=== PATIENT | male | born 1975 | race Two or more races ===

== ENCOUNTER 2019-12-29 08:04 | Inpatient (IN) | payer MEDICARE, OTHER ==
[~2019-12-29] VITALS: Ht 170.2 cm; Wt 152.3 kg
[2019-12-29 08:55] LABS: Basophils # (auto) 0.1 10 ^3/uL (0-0.2); Basophils % (auto) 0.9 % (0.0-2.0); Eosinophils # (auto) 0.2 10 ^3/uL (0-0.8); Hematocrit 50.6 % (41.0-53.0); Hemoglobin 17.1 g/dL (13.5-17.5); Lymphocytes # (auto) 2.1 10 ^3/uL (0.4-5.4); Lymphocytes % (auto) 19.9 % (10.0-50.0); Mean Corpuscular Hemoglobin 28.9 pg (28.0-32.0); Mean Corpuscular Hgb Conc. 33.8 g/dL (32.0-36.0); Mean Corpuscular Volume 85.4 fL (80.0-100.0); Monocytes # (auto) 0.9 10 ^3/uL (0-1.3); Monocytes % (auto) 8.7 % (0.0-12.0); Neutrophils # (auto) 7.1 10 ^3/uL (1.6-8.6); Neutrophils % (auto) 68.5 % (37.0-80.0); Nucleated Red Blood Cells % 0.1 %; Platelet Count (auto) 157 10^3/uL (140-450); Red Blood Cells 5.92 10^6/uL (4.5-5.90); Red Cell Distribution Width 14.9 % (11.8-14.3); White Blood Cell 10.4 10^3/uL (4.4-10.8)
[2019-12-29 09:11] LABS: Urine Bacteria NONE SEEN /hpf (None Seen); Urine Blood TRACE /uL (Negative); Urine Specific Gravity 1.033 (1.001-1.035); Urine WBC 5 /hpf (0 - 3)
[2019-12-29 09:15] LABS: Albumin 3.4 g/dL (3.4-5.0); Calcium 9.1 mg/dL (8.5-10.1); Magnesium 2.8 mg/dL (1.6-2.6); Potassium 3.9 mmol/L (3.5-5.1)
[2019-12-29 09:17] LABS: INR 1.3 (0.9-1.15); Partial Thromboplastin Time 29.1 sec (23.64-32.05)
[2019-12-29 09:23] LABS: BUN/Creatinine Ratio 16.4; Bilirubin, Total 0.7 mg/dL (0.2-1.0); Total Protein 8.4 g/dL (6.4-8.2)
[2019-12-29] MEDS ORDERED: InsuLIN REG 1unit/0.01ml Soln (100units/ml) IV ONE ×2 (10:15→14:30)
[2019-12-29] MEDS ORDERED: SODIUM CHLORIDE 0.9% 1,000 ML IV ONE (10:15)
[2019-12-29] MEDS ORDERED: cefTRIAXone 1GM/50ML D5W 50 ML IV ONE (10:30)
[2019-12-29] MEDS ORDERED: TEMAZEPAM 15 MG CAP PO PRN (11:00)
[2019-12-29] MEDS ORDERED: PROMETHAZINE HCL 25 MG/ML 1ML IV PRN (11:00)
[2019-12-29] MEDS ORDERED: DEXTROSE (50%) 50ML SYRG IV PRN ×2 (11:00→14:30)
[2019-12-29] MEDS ORDERED: INSULIN LANTUS (GLARGINE) 1 /0.01ml (100units/ml) SC ONE (11:00)
[2019-12-29] MEDS ORDERED: traMADol HCL 50 MG TAB PO PRN (11:00)
[2019-12-29] MEDS ORDERED: ACETAMINOPHEN 500 MG TAB PO PRN (11:00)
[2019-12-29 11:34] LABS: Amylase 30 U/L (25-115); Lipase 235 U/L (73-393)
[2019-12-29 11:40] LABS: CRP High Sensitivity 2.06 mg/dL (< 0.3)
[2019-12-29] MEDS ORDERED: ACCU-CHEK COMFORT CURVE STRIP VI SCH (12:00)
[2019-12-29] MEDS ORDERED: InsuLIN REG 1unit/0.01ml Soln (100units/ml) SC SCH (12:00)
[2019-12-29] MEDS: SODIUM CHLORIDE 0.9% 1,000 ML IV SCH ×2 (13:41→20:00)
[2019-12-29] MEDS ORDERED: InsuLIN REG 1unit/0.01ml Soln (100units/ml) SC ONE (14:30)
[2019-12-29] MEDS ORDERED: InsuLIN REG 1unit/0.01ml Soln (100units/ml) ONE (14:40)
[2019-12-29] MEDS: ACCU-CHEK COMFORT CURVE STRIP VI SCH ×2 (16:49→20:08)
[2019-12-29] MEDS: InsuLIN REG 1unit/0.01ml Soln (100units/ml) SC SCH ×2 (17:09→20:08)
[2019-12-29 20:00] VITALS: BP 135/85
[2019-12-29 22:00] VITALS: BP 116/72
[2019-12-29] MEDS: INSULIN LANTUS (GLARGINE) 1 /0.01ml (100units/ml) SC SCH (22:09)
[2019-12-29] MEDS: FAMOTIDINE 20 MG TAB PO SCH (23:11)
[2019-12-30] MEDS: InsuLIN REG 1unit/0.01ml Soln (100units/ml) SC SCH ×6 (00:33→21:54)
[2019-12-30] MEDS: ACCU-CHEK COMFORT CURVE STRIP VI SCH ×6 (00:33→21:55)
[2019-12-30] MEDS: SODIUM CHLORIDE 0.9% 1,000 ML IV SCH ×4 (00:41→21:56)
[2019-12-30 04:30] VITALS: BP 125/70
[2019-12-30] MEDS: INSULIN LANTUS (GLARGINE) 1 /0.01ml (100units/ml) SC SCH ×2 (06:42→21:55)
[2019-12-30 06:45] LABS: Albumin 2.7 g/dL (3.4-5.0); Calcium 7.7 mg/dL (8.5-10.1); Potassium 3.6 mmol/L (3.5-5.1)
[2019-12-30 06:50] LABS: BUN/Creatinine Ratio 15.6; Bilirubin, Total 0.5 mg/dL (0.2-1.0)
[2019-12-30] MEDS: cefTRIAXone 1GM/50ML D5W 50 ML IV SCH (07:54)
[2019-12-30 09:00] VITALS: BP 114/63
[2019-12-30] MEDS: ASCORBIC ACID 1,000 MG TAB PO SCH (10:00)
[2019-12-30] MEDS: FAMOTIDINE 20 MG TAB PO SCH ×2 (10:18→21:55)
[2019-12-30] MEDS: ZINC SULFATE 220mg CAP or TAB PO SCH (10:18)
[2019-12-30] MEDS: CHOLECALCIFEROL (VITD3) 1,000IU=25mCg TAB PO SCH (10:18)
[2019-12-30] MEDS: ENOXAPARIN SOD 40 MG/0.4 ML SYRINGE SC SCH (10:19)
[2019-12-30 14:00] VITALS: BP 120/68
[2019-12-30 15:55] VITALS: BP 120/68
[2019-12-30 17:00] VITALS: BP 115/70
[2019-12-30 22:00] VITALS: BP 136/71
[2019-12-31] MEDS: ACCU-CHEK COMFORT CURVE STRIP VI SCH ×6 (00:42→22:41)
[2019-12-31] MEDS: InsuLIN REG 1unit/0.01ml Soln (100units/ml) SC SCH ×6 (00:42→22:40)
[2019-12-31 05:00] VITALS: BP 132/65
[2019-12-31] MEDS: SODIUM CHLORIDE 0.9% 1,000 ML IV SCH ×3 (06:32→22:57)
[2019-12-31] MEDS: INSULIN LANTUS (GLARGINE) 1 /0.01ml (100units/ml) SC SCH ×2 (06:32→22:41)
[2019-12-31 06:35] LABS: Basophils # (auto) 0 10 ^3/uL (0-0.2); Basophils % (auto) 0.5 % (0.0-2.0); Eosinophils # (auto) 0.2 10 ^3/uL (0-0.8); Eosinophils % (auto) 3.4 % (0.0-7.0); Hematocrit 43.9 % (41.0-53.0); Hemoglobin 14.9 g/dL (13.5-17.5); Lymphocytes # (auto) 1.6 10 ^3/uL (0.4-5.4); Lymphocytes % (auto) 22.4 % (10.0-50.0); Mean Corpuscular Hemoglobin 28.7 pg (28.0-32.0); Mean Corpuscular Hgb Conc. 33.9 g/dL (32.0-36.0); Mean Corpuscular Volume 84.5 fL (80.0-100.0); Monocytes # (auto) 0.5 10 ^3/uL (0-1.3); Neutrophils # (auto) 4.8 10 ^3/uL (1.6-8.6); Neutrophils % (auto) 66.7 % (37.0-80.0); Nucleated Red Blood Cells % 0.1 %; Platelet Count (auto) 122 10^3/uL (140-450); Red Cell Distribution Width 14.8 % (11.8-14.3); White Blood Cell 7.1 10^3/uL (4.4-10.8)
[2019-12-31 06:48] LABS: Potassium 3.2 mmol/L (3.5-5.1)
[2019-12-31 07:00] LABS: Albumin 2.7 g/dL (3.4-5.0); BUN/Creatinine Ratio 15.6; Bilirubin, Total 0.5 mg/dL (0.2-1.0); Calcium 7.7 mg/dL (8.5-10.1); Total Protein 6.8 g/dL (6.4-8.2)
[2019-12-31 07:08] LABS: % Iron Saturation 48.9 % (20-55)
[2019-12-31 08:00] VITALS: BP 105/50
[2019-12-31 09:00] VITALS: BP 105/54
[2019-12-31] MEDS: ASCORBIC ACID 1,000 MG TAB PO SCH (10:00)
[2019-12-31] MEDS: CHOLECALCIFEROL (VITD3) 1,000IU=25mCg TAB PO SCH (11:00)
[2019-12-31] MEDS: FAMOTIDINE 20 MG TAB PO SCH ×2 (11:00→22:41)
[2019-12-31] MEDS: ENOXAPARIN SOD 40 MG/0.4 ML SYRINGE SC SCH (11:00)
[2019-12-31] MEDS: ZINC SULFATE 220mg CAP or TAB PO SCH (11:00)
[2019-12-31 13:00] VITALS: BP 98/50
[2019-12-31] MEDS: cefTRIAXone 1GM/50ML D5W 50 ML IV SCH (13:30)
[2019-12-31 17:00] VITALS: BP 118/78
[2019-12-31 22:00] VITALS: BP 150/81
[2020-01-01] MEDS: InsuLIN REG 1unit/0.01ml Soln (100units/ml) SC SCH ×6 (01:17→20:40)
[2020-01-01] MEDS: ACCU-CHEK COMFORT CURVE STRIP VI SCH ×6 (01:32→20:37)
[2020-01-01 05:00] VITALS: BP 134/78
[2020-01-01] MEDS: SODIUM CHLORIDE 0.9% 1,000 ML IV SCH ×4 (05:37→21:52)
[2020-01-01] MEDS: INSULIN LANTUS (GLARGINE) 1 /0.01ml (100units/ml) SC SCH ×2 (06:03→21:51)
[2020-01-01 08:00] VITALS: BP 140/61
[2020-01-01 08:40] VITALS: BP 140/61
[2020-01-01] MEDS: cefTRIAXone 1GM/50ML D5W 50 ML IV SCH (08:45)
[2020-01-01] MEDS: ASCORBIC ACID 1,000 MG TAB PO SCH (10:00)
[2020-01-01] MEDS ORDERED: GOLYTELY 4L KIT PO ONE ×2 (10:00→12:00)
[2020-01-01] MEDS: FAMOTIDINE 20 MG TAB PO SCH ×2 (10:30→21:49)
[2020-01-01] MEDS: ENOXAPARIN SOD 40 MG/0.4 ML SYRINGE SC SCH (10:30)
[2020-01-01] MEDS: CHOLECALCIFEROL (VITD3) 1,000IU=25mCg TAB PO SCH (10:30)
[2020-01-01] MEDS: ZINC SULFATE 220mg CAP or TAB PO SCH (10:30)
[2020-01-01 12:30] VITALS: BP_SYST 155; BP_DIAS 9; BP_DIAS 90
[2020-01-01 17:00] VITALS: BP 155/83
[2020-01-01] MEDS ORDERED: hydrALAZINE HCL 20 MG/ML VL IV PRN ×2 (18:15→18:30)
[2020-01-01 22:00] VITALS: BP 119/47
[2020-01-02] MEDS: SODIUM CHLORIDE 0.9% 1,000 ML IV SCH ×4 (03:26→21:56)
[2020-01-02] MEDS: ACCU-CHEK COMFORT CURVE STRIP VI SCH ×7 (03:54→23:54)
[2020-01-02] MEDS: InsuLIN REG 1unit/0.01ml Soln (100units/ml) SC SCH ×7 (03:54→23:55)
[2020-01-02] MEDS ORDERED: GOLYTELY 4L KIT PO ONE (04:00)
[2020-01-02 05:00] VITALS: BP 153/75
[2020-01-02 05:58] LABS: Basophils # (auto) 0.1 10 ^3/uL (0-0.2); Basophils % (auto) 0.7 % (0.0-2.0); Eosinophils # (auto) 0.3 10 ^3/uL (0-0.8); Eosinophils % (auto) 3.8 % (0.0-7.0); Hematocrit 43.9 % (41.0-53.0); Hemoglobin 15.3 g/dL (13.5-17.5); Lymphocytes # (auto) 2.1 10 ^3/uL (0.4-5.4); Lymphocytes % (auto) 24.9 % (10.0-50.0); Mean Corpuscular Hemoglobin 29.4 pg (28.0-32.0); Mean Corpuscular Hgb Conc. 34.8 g/dL (32.0-36.0); Mean Corpuscular Volume 84.3 fL (80.0-100.0); Monocytes # (auto) 0.7 10 ^3/uL (0-1.3); Monocytes % (auto) 8.5 % (0.0-12.0); Neutrophils # (auto) 5.2 10 ^3/uL (1.6-8.6); Neutrophils % (auto) 62.1 % (37.0-80.0); Nucleated Red Blood Cells % 0.1 %; Platelet Count (auto) 150 10^3/uL (140-450); Red Blood Cells 5.21 10^6/uL (4.5-5.90); Red Cell Distribution Width 14.9 % (11.8-14.3); White Blood Cell 8.3 10^3/uL (4.4-10.8)
[2020-01-02 06:09] LABS: INR 1.12 (0.9-1.15)
[2020-01-02 06:22] LABS: Potassium 3.1 mmol/L (3.5-5.1)
[2020-01-02 06:29] LABS: Albumin 2.7 g/dL (3.4-5.0); BUN/Creatinine Ratio 7.4; Bilirubin, Total 0.4 mg/dL (0.2-1.0); Calcium 7.8 mg/dL (8.5-10.1); Total Protein 6.7 g/dL (6.4-8.2)
[2020-01-02] MEDS: INSULIN LANTUS (GLARGINE) 1 /0.01ml (100units/ml) SC SCH ×2 (07:00→21:56)
[2020-01-02 09:00] VITALS: BP 138/80
[2020-01-02] MEDS: cefTRIAXone 1GM/50ML D5W 50 ML IV SCH (09:13)
[2020-01-02] MEDS: FAMOTIDINE 20 MG TAB PO SCH (10:00)
[2020-01-02] MEDS: ENOXAPARIN SOD 40 MG/0.4 ML SYRINGE SC SCH (10:00)
[2020-01-02 11:04] LABS: Hepatitis B Surface Antibody Negative
[2020-01-02 11:05] LABS: Hepatitis B Surface Antibody Negative
[2020-01-02] MEDS ORDERED: POTASSIUM CHL 20MEQ/100ML 100 ML IV ONE ×3 (11:30→15:30)
[2020-01-02 11:37] LABS: Hepatitis A Total Antibody Negative
[2020-01-02 11:40] LABS: Hepatitis A Total Antibody Negative
[2020-01-02] MEDS ORDERED: fentaNYL CITRATE 100 MCG/2 ML VL ONE (12:33)
[2020-01-02] MEDS ORDERED: PROPOFOL 10 MG/ML 20 ML IV ONE (12:36)
[2020-01-02] MEDS ORDERED: hydrALAZINE HCL 20 MG/ML VL IV PRN (13:15)
[2020-01-02] MEDS ORDERED: ePHEDrine SULFATE 50 MG/ML AMP IV PRN (13:15)
[2020-01-02] MEDS ORDERED: ONDANSETRON HCL 4 MG/2 ML VIAL IV PRN (13:15)
[2020-01-02 13:16] LABS: Hepatitis B Core Total AB Negative; Hepatitis B Surface Antigen Negative (Negative); Hepatitis C Antibody Negative (Negative)
[2020-01-02 13:17] LABS: Hepatitis B Core Total AB Negative; Hepatitis B Surface Antigen Negative (Negative); Hepatitis C Antibody Negative (Negative)
[2020-01-02 14:00] VITALS: BP 140/80
[2020-01-02] MEDS: PANTOPRAZOLE 40 MG TAB PO SCH (14:02)
[2020-01-02 17:00] VITALS: BP 141/78
[2020-01-02 22:00] VITALS: BP 142/96
[2020-01-03] MEDS: InsuLIN REG 1unit/0.01ml Soln (100units/ml) SC SCH ×3 (03:59→12:00)
[2020-01-03] MEDS: ACCU-CHEK COMFORT CURVE STRIP VI SCH ×3 (03:59→12:00)
[2020-01-03] MEDS: SODIUM CHLORIDE 0.9% 1,000 ML IV SCH ×2 (05:00→11:30)
[2020-01-03 05:30] VITALS: BP 145/63
[2020-01-03 05:46] LABS: Urine Bacteria NONE SEEN /hpf (None Seen); Urine Blood Negative /uL (Negative); Urine Specific Gravity 1.005 (1.001-1.035); Urine WBC <1 /hpf (0 - 3)
[2020-01-03] MEDS: INSULIN LANTUS (GLARGINE) 1 /0.01ml (100units/ml) SC SCH (06:57)
[2020-01-03 07:06] LABS: Potassium 3.5 mmol/L (3.5-5.1)
[2020-01-03 07:13] LABS: Albumin 2.8 g/dL (3.4-5.0); BUN/Creatinine Ratio 7.6; Bilirubin, Total 0.5 mg/dL (0.2-1.0); Calcium 7.9 mg/dL (8.5-10.1); Total Protein 6.9 g/dL (6.4-8.2)
[2020-01-03 08:00] VITALS: BP 125/72
[2020-01-03] MEDS: cefTRIAXone 1GM/50ML D5W 50 ML IV SCH (08:24)
[2020-01-03] MEDS: PANTOPRAZOLE 40 MG TAB PO SCH (10:11)
[2020-01-03] MEDS: ENOXAPARIN SOD 40 MG/0.4 ML SYRINGE SC SCH (10:12)
[2020-01-03 10:47] VITALS: BP 125/72
[2020-01-03 12:00] VITALS: BP 147/82
== END 2020-01-03 13:15 | disposition home or self-care (01) | DRG 638 ==
LOC: ER 08:04 → TELE 08:05 → TELE-EAST 12:06 → TELE-CENTR 21:50
PROVIDERS: ADMIT Internal Medicine; ATTEND Family Medicine
PROC: 0DB68ZX Excision of Stomach, Via Natural or Artificial Opening Endoscopic, Diagnostic (ICD-10-PCS; principal; 2020-01-02 12:29)
PROC: 0DJD8ZZ Inspection of Lower Intestinal Tract, Via Natural or Artificial Opening Endoscopic (ICD-10-PCS; 2020-01-02 12:29)
DX: E11.00 Type 2 diabetes mellitus with hyperosmolarity without nonketotic hyperglycemic-hyperosmolar coma (NKHHC) (principal); N39.0 Urinary tract infection, site not specified; E87.1 Hypo-osmolality and hyponatremia; N17.9 Acute kidney failure, unspecified; Z68.43 Body mass index [BMI] 50.0-59.9, adult; E11.65 Type 2 diabetes mellitus with hyperglycemia; K29.80 Duodenitis without bleeding; G47.30 Sleep apnea, unspecified; K29.70 Gastritis, unspecified, without bleeding; F15.90 Other stimulant use, unspecified, uncomplicated; E66.01 Morbid (severe) obesity due to excess calories; Z83.3 Family history of diabetes mellitus; Z03.818 Encounter for observation for suspected exposure to other biological agents ruled out
CPT/HCPCS: 36415; 43239; 45378; 71045; 73630; 76700; 80053; 81001; 82150; 82306; 82728; 82962; 83036; 83540; 83550; 83615; 83690; 83735; 84100; 85025; 85379; 85610; 85730; 86038; 86141; 86704; 86706; 86708; 86803; 87070; 87086; 87205; 87340; 87804; 87880; 94660; 96361; 96365; 96375; 99291; G0378; J0696; J1815; J2704; J3480

== ENCOUNTER 2020-08-02 15:08 | Emergency (ER) | payer SELFPAY ==
[~2020-08-02] VITALS: Ht 167.6 cm; Wt 145.1 kg
[2020-08-02 15:16] VITALS: BP 155/84
[2020-08-02] MEDS ORDERED: cefTRIAXone SOD 1,000 MG VL IM ONE ×2 (16:45)
== END 2020-08-02 17:11 | disposition home or self-care (01) ==
LOC: ER 15:08
DX: L73.9 Follicular disorder, unspecified (principal); L02.821 Furuncle of head [any part, except face]; E11.9 Type 2 diabetes mellitus without complications
CPT/HCPCS: 96372; 99284; J0696

== ENCOUNTER 2021-03-30 18:48 | Emergency (ER) | payer MEDICARE, OTHER ==
[~2021-03-30] VITALS: Ht 167.6 cm; Wt 140.6 kg
[2021-03-30 20:41] VITALS: BP 129/74
== END 2021-03-30 23:04 | disposition home or self-care (01) ==
LOC: ER 18:49
DX: S23.3XXA Sprain of ligaments of thoracic spine, initial encounter (principal); E11.9 Type 2 diabetes mellitus without complications; I10 Essential (primary) hypertension; V43.52XA Car driver injured in collision with other type car in traffic accident, initial encounter; Y93.89 Activity, other specified; Y92.410 Unspecified street and highway as the place of occurrence of the external cause; Y99.8 Other external cause status
CPT/HCPCS: 72080

== ENCOUNTER 2023-03-31 13:17 | Emergency (ER) | payer MEDICAID ==
[~2023-03-31] VITALS: Ht 167.6 cm; Wt 129.5 kg
[2023-03-31 13:22] VITALS: BP 141/120; RESP 18; O2SAT 96
[2023-03-31] MEDS ORDERED: LABETALOL HCL 5 MG/ML 4ML SYRINGE IV ONE (13:30)
[2023-03-31 13:37] VITALS: PULSE 95
[2023-03-31 14:47] LABS: Alanine Aminotransferase 48 U/L (7-40); Albumin 4.5 g/dL (3.2-4.8); Alkaline Phosphatase 95 U/L (46-116); Anion Gap 10.3 (5-15); Aspartate Aminotransferase 13 U/L (13-40); BUN/Creatinine Ratio 12.2 (10.0-20.0); Blood Urea Nitrogen 11 mg/dL (9-23); Calcium 9.8 mg/dL (8.7-10.4); Carbon Dioxide 22.7 mmol/L (20-30); Chloride 102 mmol/L (98-107); Glucose 387 mg/dL (74-106); Magnesium 1.8 mg/dL (1.6-2.6); Sodium 135 mmol/L (136-145)
[2023-03-31 14:48] LABS: Bilirubin, Total 0.4 mg/dL (0.2-1.0); Total Protein 7.9 g/dL (5.7-8.2)
[2023-03-31 14:51] LABS: Basophils # (auto) 0.1 10 ^3/uL (0-0.2); Eosinophils # (auto) 0.3 10 ^3/uL (0-0.8); Mean Corpuscular Hemoglobin 28.2 pg (28.0-32.0); Mean Corpuscular Hgb Conc. 33.7 g/dL (32.0-36.0); Nucleated Red Blood Cells % 0.1 %
[2023-03-31 14:52] LABS: Basophils % (auto) 0.4 % (0.0-2.0); Eosinophils % (auto) 1.8 % (0.0-7.0); Hematocrit 50.5 % (41.0-53.0); Lymphocytes # (auto) 3.8 10 ^3/uL (0.4-5.4); Lymphocytes % (auto) 25.4 % (10.0-50.0); Mean Corpuscular Volume 83.5 fL (80.0-100.0); Monocytes # (auto) 0.8 10 ^3/uL (0-1.3); Monocytes % (auto) 5.5 % (0.0-12.0); Neutrophils % (auto) 66.9 % (37.0-80.0); Red Blood Cells 6.05 10^6/uL (4.5-5.90); Red Cell Distribution Width 13.9 % (11.8-14.3)
[2023-03-31] MEDS ORDERED: VALA1TAB34 PO (15:08)
[2023-03-31] MEDS ORDERED: PRED20TA2 PO (15:08)
[2023-03-31] MEDS ORDERED: predniSONE 20 MG TAB PO ONE (15:15)
[2023-03-31] MEDS ORDERED: ACYCLOVIR 400 MG TAB PO ONE (15:15)
== END 2023-03-31 16:46 | disposition home or self-care (01) ==
LOC: ER 13:17
DX: G51.0 Bell's palsy (principal); E11.9 Type 2 diabetes mellitus without complications; E78.5 Hyperlipidemia, unspecified; I10 Essential (primary) hypertension; Z98.890 Other specified postprocedural states
CPT/HCPCS: 36415; 70450; 71045; 80053; 83735; 84484; 85025; 93005; 96374

== ENCOUNTER 2023-04-08 11:51 | Emergency (ER) | payer MEDICAID ==
[~2023-04-08] VITALS: Ht 167.6 cm; Wt 128.7 kg
[~2023-04-08 11:51] MED LIST: PRED20TA2 PO; VALA1TAB34 PO
[2023-04-08 12:00] VITALS: BP 142/79; PULSE 84; RESP 18; O2SAT 94
== END 2023-04-08 17:21 | disposition left against medical advice (07) ==
LOC: ER 11:51
DX: R29.810 Facial weakness (principal); R21 Rash and other nonspecific skin eruption; Z53.21 Procedure and treatment not carried out due to patient leaving prior to being seen by health care provider

== ENCOUNTER 2023-10-09 17:05 | Inpatient (IN) | payer MEDICAID ==
[~2023-10-09] VITALS: Ht 167.6 cm; Wt 130.2 kg
[2023-10-09] MEDS: CLINDAMYCIN HCL 150 MG CAP PO ONE (18:39)
[2023-10-09] MEDS: TETANUS-DIPTH-ACEL PERTUSSIS 0.5ML SYR Tdap IM ONE (18:41)
[2023-10-09] MEDS: cefTRIAXone SOD 1,000 MG VL IM ONE (18:47)
[2023-10-09 19:46] LABS: Basophils # (auto) 0.1 10 ^3/uL (0-0.2); Basophils % (auto) 0.4 % (0.0-2.0); Eosinophils # (auto) 0.2 10 ^3/uL (0-0.8); Eosinophils % (auto) 1.1 % (0.0-7.0); Hematocrit 48.4 % (41.0-53.0); Hemoglobin 16.4 g/dL (13.5-17.5); Lymphocytes # (auto) 2.7 10 ^3/uL (0.4-5.4); Lymphocytes % (auto) 15.5 % (10.0-50.0); Mean Corpuscular Hemoglobin 28.1 pg (28.0-32.0); Mean Corpuscular Hgb Conc. 33.9 g/dL (32.0-36.0); Monocytes # (auto) 1.3 10 ^3/uL (0-1.3); Monocytes % (auto) 7.4 % (0.0-12.0); Neutrophils # (auto) 13.4 10 ^3/uL (1.6-8.6); Neutrophils % (auto) 75.6 % (37.0-80.0); Red Blood Cells 5.83 10^6/uL (4.5-5.90); Red Cell Distribution Width 13.8 % (11.8-14.3); White Blood Cell 17.7 10^3/uL (4.4-10.8)
[2023-10-09 19:55] LABS: Chloride 101 mmol/L (98-107); Potassium 3.6 mmol/L (3.5-5.1); Sodium 131 mmol/L (136-145)
[2023-10-09 19:56] LABS: Anion Gap 6 (5-15); Calcium 9.8 mg/dL (8.5-10.1); Carbon Dioxide 24 mmol/L (20-30)
[2023-10-09 20:01] LABS: BUN/Creatinine Ratio 6.8 (10.0-20.0); Blood Urea Nitrogen 5 mg/dL (9-23); Glucose 342 mg/dL (74-106)
[2023-10-09] MEDS: cloNIDine HCL 0.1 MG TAB PO ONE (21:24)
[2023-10-09] MEDS: INSULIN LISPRO (HUMAN) 100 UNITS/ML ML SC ONE (21:26)
[2023-10-09] MEDS: SODIUM CHLORIDE 0.9% 1,000 ML IV ONE ×2 (22:01→23:57)
[2023-10-09] MEDS ORDERED: NITROGLYCERIN 0.4 MG SL TAB SL PRN (22:30)
[2023-10-09] MEDS ORDERED: MORPHINE SULFATE INJ 2 MG/ml SYRG IV PRN ×2 (22:30)
[2023-10-09] MEDS ORDERED: DEXTROSE (50%) 50ML SYRG IV PRN (22:30)
[2023-10-09] MEDS ORDERED: DOCUSATE SOD 100 MG CAP PO PRN (22:30)
[2023-10-09] MEDS ORDERED: ONDANSETRON HCL 4 MG/2 ML VIAL IV PRN (22:30)
[2023-10-09] MEDS ORDERED: ACETAMINOPHEN 325 MG TAB PO PRN (22:30)
[2023-10-09] MEDS ORDERED: TEMAZEPAM 15 MG CAP PO PRN (22:30)
[2023-10-10] MEDS: PIPERACILLIN-TAZOB 3.375GM 100 ML IV SCH (00:52)
[2023-10-10] MEDS: ACCU-CHEK COMFORT CURVE STRIP VI SCH (00:58)
[2023-10-10] MEDS: InsuLIN REG 1unit/0.01ml Soln (100units/ml) SC SCH (00:59)
[2023-10-10 06:12] LABS: Basophils # (auto) 0.1 10 ^3/uL (0-0.2); Basophils % (auto) 0.5 % (0.0-2.0); Eosinophils # (auto) 0.2 10 ^3/uL (0-0.8); Eosinophils % (auto) 1.4 % (0.0-7.0); Hematocrit 46.6 % (41.0-53.0); Hemoglobin 15.8 g/dL (13.5-17.5); Lymphocytes # (auto) 2.9 10 ^3/uL (0.4-5.4); Lymphocytes % (auto) 17.8 % (10.0-50.0); Mean Corpuscular Volume 82.4 fL (80.0-100.0); Monocytes # (auto) 1.3 10 ^3/uL (0-1.3); Monocytes % (auto) 7.9 % (0.0-12.0); Neutrophils # (auto) 11.7 10 ^3/uL (1.6-8.6); Neutrophils % (auto) 72.4 % (37.0-80.0); Nucleated Red Blood Cells % 0.1 %; Red Blood Cells 5.65 10^6/uL (4.5-5.90); Red Cell Distribution Width 14.1 % (11.8-14.3); White Blood Cell 16.2 10^3/uL (4.4-10.8)
[2023-10-10 06:27] LABS: Alanine Aminotransferase 32 U/L (7-40); Albumin 4.1 g/dL (3.2-4.8); Alkaline Phosphatase 98 U/L (46-116); Anion Gap 9 (5-15); Aspartate Aminotransferase 17 U/L (13-40); Bilirubin, Total 0.6 mg/dL (0.2-1.0); Blood Urea Nitrogen 8 mg/dL (9-23); Carbon Dioxide 23 mmol/L (20-30); Chloride 103 mmol/L (98-107); Glucose 253 mg/dL (74-106); Potassium 3.2 mmol/L (3.5-5.1); Sodium 135 mmol/L (136-145); Total Protein 7.5 g/dL (5.7-8.2)
[2023-10-10 11:30] VITALS: PULSE 86; RESP 22; O2SAT 94
[2023-10-10] MEDS ORDERED: VANCOMYCIN PER PHARMACY 0 MG IV SCH (12:30)
[2023-10-10] MEDS: FAMOTIDINE (10MG/ML) 2ML VL IV SCH (12:38)
[2023-10-10] MEDS: NIFEdipine ER 30 MG TAB PO SCH (12:38)
[2023-10-10] MEDS: VANCOMYCIN 1GM/200ML 200 ML IV ONE (12:47)
[2023-10-10] MEDS: VANCOMYCIN 1GM/200ML 200 ML IV SCH (18:30)
[2023-10-10 18:49] VITALS: BP 123/72; PULSE 71; PULSE 74; RESP 16; TEMP 98.2; O2SAT 95
[2023-10-10 18:50] VITALS: PULSE 72
[2023-10-10 20:00] VITALS: BP 126/70; PULSE 68; PULSE 74; RESP 16; O2SAT 0
[2023-10-10 22:00] VITALS: BP 118/81; PULSE 86; RESP 20; TEMP 98.5; O2SAT 97
[2023-10-10] MEDS: ATORVASTATIN 20 MG TAB PO SCH (22:08)
[2023-10-11] VITALS (8 sets, daily range): BP systolic 112–139; BP diastolic 69–75; PULSE 58–107; RESP 18–20; TEMP 97.7–98; O2SAT 91–98
[2023-10-11] MEDS: LIDOCAINE W/ EPINEPHRINE 1% 20ML VIAL ONE (07:38)
[2023-10-11] MEDS: BUPIVACAINE 0.25% INJ 50ML VIAL ONE (07:38)
[2023-10-11] MEDS ORDERED: MIDAZOLAM HCL 2MG/2ML 2ml VIAL (1mg/ml) ONE (08:26)
[2023-10-11] MEDS ORDERED: fentaNYL CITRATE 100 MCG/2 ML VL ONE (08:26)
[2023-10-11] MEDS ORDERED: ONDANSETRON HCL 4 MG/2 ML VIAL ONE (08:28)
[2023-10-11] MEDS ORDERED: LIDOCAINE 2% (LOCAL ANESTH.) PF 5ml SDV ONE (08:29)
[2023-10-11] MEDS ORDERED: PROPOFOL 10 MG/ML 20 ML IV ONE (08:29)
[2023-10-11] MEDS ORDERED: HYDROmorphone HCL 2 MG/ML VL/or syr IV PRN (08:45)
[2023-10-11] MEDS ORDERED: ONDANSETRON HCL 4 MG/2 ML VIAL IV PRN (08:45)
[2023-10-11] MEDS: ENOXAPARIN SOD 40 MG/0.4 ML SYRINGE SC SCH (10:55)
[2023-10-11] MEDS: SUCCINYLCHOLINE CHLORIDE 20 MG/ML 10ML VIAL IV ONE (11:38)
[2023-10-11] MEDS: VANCOMYCIN 1GM/200ML 200 ML IV SCH (13:05)
[2023-10-11] MEDS: HYDROcodone-ACET 5/325MG TAB PO PRN (15:02)
[2023-10-12] VITALS (8 sets, daily range): BP systolic 105–126; BP diastolic 66–79; PULSE 79–99; RESP 18–21; TEMP 97.8–98.1; O2SAT 90–96
[2023-10-12 08:33] LABS: Hepatitis B Surface Antigen Negative (Negative)
[2023-10-12 08:54] LABS: Hepatitis C Antibody Negative (Negative)
[2023-10-12] MEDS ORDERED: ATOR40TA52 PO (16:21)
[2023-10-12] MEDS ORDERED: METF-371 PO (16:21)
[2023-10-12] MEDS: ceFAZolin 2 GM/D5W50ml 50 ML IV SCH (22:00)
[2023-10-13 05:00] VITALS: BP 106/72; PULSE 79; RESP 20; TEMP 98.4; O2SAT 95
[2023-10-13 08:00] VITALS: PULSE 84
[2023-10-13 08:20] VITALS: BP 118/76; PULSE 79; RESP 17; TEMP 97.5; O2SAT 90
[2023-10-13 09:00] VITALS: BP 118/76; PULSE 79; RESP 17; TEMP 97.5; O2SAT 90
[2023-10-13] MEDS ORDERED: BACDST PO ×2 (11:43→20:56)
[2023-10-13] MEDS ORDERED: CEPH500C PO (11:43)
[2023-10-13] MEDS ORDERED: HYDR-4902 PO (11:44)
[2023-10-13 13:00] VITALS: BP 129/77; PULSE 93; RESP 18; TEMP 97.4; O2SAT 95
[2023-10-13] MEDS: VANCOMYCIN 1GM/200ML 200 ML IV SCH (14:09)
== END 2023-10-13 16:20 | disposition home or self-care (01) | DRG 720 ==
LOC: ER 17:05 → TELE 22:25 → TELE-WESTW 10-10 18:48
PROVIDERS: ADMIT Internal Medicine; ATTEND Internal Medicine
PROC: 0JB00ZZ Excision of Scalp Subcutaneous Tissue and Fascia, Open Approach (ICD-10-PCS; principal; 2023-10-11 08:44)
DX: A41.9 Sepsis, unspecified organism (principal); E11.65 Type 2 diabetes mellitus with hyperglycemia; L02.01 Cutaneous abscess of face; E66.01 Morbid (severe) obesity due to excess calories; I10 Essential (primary) hypertension; L03.211 Cellulitis of face; L73.9 Follicular disorder, unspecified; L72.3 Sebaceous cyst; Z83.3 Family history of diabetes mellitus; Z68.42 Body mass index [BMI] 45.0-49.9, adult; Z79.4 Long term (current) use of insulin
CPT/HCPCS: 36415; 80048; 80053; 80202; 82565; 82962; 83036; 83690; 83880; 84484; 85025; 86803; 87070; 87075; 87077; 87186; 87205; 87340; 90471; 90715; 96372; G0378; J0330; J0696; J1815; J2001; J2250; J2405; J2543; J2704; J3490

== ENCOUNTER 2023-12-30 18:13 | Emergency (ER) | payer MEDICAID ==
[~2023-12-30] VITALS: Ht 167.6 cm; Wt 126.7 kg
[~2023-12-30 18:13] MED LIST changes: +ATOR40TA52 PO; +BACDST PO; +CEPH500C PO; +HYDR-4902 PO; +METF-371 PO; -PRED20TA2 PO; -VALA1TAB34 PO
[2023-12-30] MEDS ORDERED: CYCL-837 PO (21:22)
[2023-12-30] MEDS ORDERED: IBUP-1456 PO (21:22)
[2023-12-31] MEDS: KETOROLAC TROMETH 60MG/2ML VIAL IM ONE (00:50)
[2023-12-31 01:01] VITALS: BP 138/92; PULSE 80; RESP 18; TEMP 98; O2SAT 98
== END 2023-12-31 01:01 | disposition home or self-care (01) ==
LOC: ER 18:13
DX: S39.012A Strain of muscle, fascia and tendon of lower back, initial encounter (principal); G89.29 Other chronic pain; E11.9 Type 2 diabetes mellitus without complications; I10 Essential (primary) hypertension; Z79.899 Other long term (current) drug therapy; X58.XXXA Exposure to other specified factors, initial encounter; Y93.89 Activity, other specified; Y92.89 Other specified places as the place of occurrence of the external cause; Y99.8 Other external cause status
CPT/HCPCS: 72100; 96372; 99283; J1885

== ENCOUNTER 2024-01-29 09:12 | Inpatient (IN) | payer MEDICAID ==
[~2024-01-29] VITALS: Ht 167.6 cm; Wt 124.9 kg
[~2024-01-29 09:12] MED LIST changes: +CYCL-837 PO; +IBUP-1456 PO
[2024-01-29 10:21] LABS: Basophils # (auto) 0.1 10 ^3/uL (0-0.2); Basophils % (auto) 0.7 % (0.0-2.0); Eosinophils # (auto) 0.3 10 ^3/uL (0-0.8); Eosinophils % (auto) 3.5 % (0.0-7.0); Hematocrit 48.3 % (41.0-53.0); Hemoglobin 16.7 g/dL (13.5-17.5); Lymphocytes # (auto) 1.9 10 ^3/uL (0.4-5.4); Lymphocytes % (auto) 24.4 % (10.0-50.0); Mean Corpuscular Hemoglobin 28.1 pg (28.0-32.0); Mean Corpuscular Hgb Conc. 34.6 g/dL (32.0-36.0); Mean Corpuscular Volume 81.2 fL (80.0-100.0); Monocytes # (auto) 0.7 10 ^3/uL (0-1.3); Monocytes % (auto) 9.1 % (0.0-12.0); Neutrophils # (auto) 4.9 10 ^3/uL (1.6-8.6); Neutrophils % (auto) 62.3 % (37.0-80.0); Nucleated Red Blood Cells % 0.1 %; Red Blood Cells 5.94 10^6/uL (4.5-5.90); Red Cell Distribution Width 13.6 % (11.8-14.3); White Blood Cell 7.9 10^3/uL (4.4-10.8)
[2024-01-29 10:27] LABS: Chloride 102 mmol/L (98-107); Potassium 3.6 mmol/L (3.5-5.1); Sodium 132 mmol/L (136-145)
[2024-01-29 10:28] LABS: Anion Gap 8 (5-15); Calcium 9.6 mg/dL (8.5-10.1); Carbon Dioxide 22 mmol/L (20-30)
[2024-01-29 10:33] LABS: BUN/Creatinine Ratio 12.3 (10.0-20.0); Blood Urea Nitrogen 10 mg/dL (9-23); Glucose 296 mg/dL (74-106)
[2024-01-29] MEDS ORDERED: HYDROcodone-ACET 5/325MG TAB PO PRN (12:00)
[2024-01-29] MEDS ORDERED: NITROGLYCERIN 0.4 MG SL TAB SL PRN (12:00)
[2024-01-29] MEDS ORDERED: DEXTROSE (50%) 50ML SYRG IV PRN (12:00)
[2024-01-29] MEDS ORDERED: ACETAMINOPHEN 325 MG TAB PO PRN (12:00)
[2024-01-29] MEDS ORDERED: MORPHINE SULFATE INJ 2 MG/ml SYRG IV PRN (12:00)
[2024-01-29] MEDS ORDERED: ONDANSETRON HCL 4 MG/2 ML VIAL IV PRN (12:00)
[2024-01-29] MEDS ORDERED: TEMAZEPAM 15 MG CAP PO PRN (12:00)
[2024-01-29 14:05] LABS: Urine Bacteria None Seen /hpf (None Seen)
[2024-01-29 14:20] LABS: Urine Blood TRACE /uL (Negative); Urine Clarity Clear (Clear); Urine Color Yellow (Yellow); Urine Mucus FEW (None Seen); Urine Protein, UAD 3+ (Negative); Urine Specific Gravity 1.039 (1.001-1.035); Urine Urobilinogen Normal (Negative); Urine WBC 1 /hpf (0 - 3)
[2024-01-29 17:00] VITALS: BP 132/79; PULSE 74; RESP 17; TEMP 98.4; O2SAT 96
[2024-01-29 20:00] VITALS: PULSE 86
[2024-01-29 20:58] VITALS: BP 132/79; PULSE 74; RESP 18; TEMP 98.4; O2SAT 96
[2024-01-29 21:00] VITALS: BP 165/95; PULSE 77; RESP 21; TEMP 98.9; O2SAT 92
[2024-01-29] MEDS: ACCU-CHEK COMFORT CURVE STRIP VI SCH (22:59)
[2024-01-29] MEDS: InsuLIN REG 1unit/0.01ml Soln (100units/ml) SC SCH (23:00)
[2024-01-30] VITALS (9 sets, daily range): BP systolic 138–149; BP diastolic 78–98; PULSE 61–86; RESP 12–22; TEMP 98.1–98.7; O2SAT 90–95
[2024-01-30 06:00] LABS: Basophils # (auto) 0 10 ^3/uL (0-0.2); Basophils % (auto) 0.6 % (0.0-2.0); Eosinophils # (auto) 0.3 10 ^3/uL (0-0.8); Eosinophils % (auto) 4.1 % (0.0-7.0); Hematocrit 47.7 % (41.0-53.0); Hemoglobin 16.6 g/dL (13.5-17.5); Lymphocytes # (auto) 2.2 10 ^3/uL (0.4-5.4); Lymphocytes % (auto) 29.3 % (10.0-50.0); Mean Corpuscular Hemoglobin 28.3 pg (28.0-32.0); Mean Corpuscular Hgb Conc. 34.8 g/dL (32.0-36.0); Mean Corpuscular Volume 81.2 fL (80.0-100.0); Monocytes # (auto) 0.8 10 ^3/uL (0-1.3); Monocytes % (auto) 10.3 % (0.0-12.0); Neutrophils # (auto) 4.1 10 ^3/uL (1.6-8.6); Neutrophils % (auto) 55.7 % (37.0-80.0); Nucleated Red Blood Cells % 0.1 %; Red Blood Cells 5.88 10^6/uL (4.5-5.90); Red Cell Distribution Width 13.4 % (11.8-14.3); White Blood Cell 7.4 10^3/uL (4.4-10.8)
[2024-01-30 06:27] LABS: Alanine Aminotransferase 65 U/L (7-40); Albumin 4.1 g/dL (3.2-4.8); Alkaline Phosphatase 98 U/L (46-116); Anion Gap 9 (5-15); Aspartate Aminotransferase 37 U/L (13-40); BUN/Creatinine Ratio 14.1 (10.0-20.0); Blood Urea Nitrogen 10 mg/dL (9-23); Calcium 9.1 mg/dL (8.5-10.1); Carbon Dioxide 24 mmol/L (20-30); Chloride 101 mmol/L (98-107); Glucose 237 mg/dL (74-106); Potassium 3.3 mmol/L (3.5-5.1); Sodium 134 mmol/L (136-145)
[2024-01-30 06:28] LABS: Bilirubin, Total 0.5 mg/dL (0.2-1.0)
[2024-01-30] MEDS: InsuLIN REG 1unit/0.01ml Soln (100units/ml) SC SCH (06:40)
[2024-01-30] MEDS: ENOXAPARIN SOD 40 MG/0.4 ML SYRINGE SC SCH (10:00)
[2024-01-30] MEDS: LISINOPRIL 20 MG TAB PO SCH (10:43)
[2024-01-30] MEDS: POTASSIUM CHL 20 Meq TABLET PO ONE (17:53)
[2024-01-30] MEDS: INSULIN LANTUS (GLARGINE) 1 /0.01ml (100units/ml) SC SCH (22:23)
[2024-01-31] VITALS (7 sets, daily range): BP systolic 102–140; BP diastolic 55–89; PULSE 67–81; RESP 16–18; TEMP 97.6–98.5; O2SAT 95–98
[2024-01-31] MEDS ORDERED: LORazepam 2MG/ML-1ML VIAL IV PRN (20:45)
[2024-01-31] MEDS: FAMOTIDINE 20 MG TAB PO SCH (22:07)
[2024-01-31] MEDS: predniSONE 20 MG TAB PO ONE (22:08)
[2024-02-01 05:00] VITALS: BP 128/88; PULSE 85; RESP 18; TEMP 98.3; O2SAT 94
[2024-02-01 08:00] VITALS: PULSE 78
[2024-02-01] MEDS: predniSONE 20 MG TAB PO SCH (08:54)
[2024-02-01 09:41] VITALS: BP 136/93; PULSE 88; RESP 17; TEMP 97.6; O2SAT 96
[2024-02-01 17:03] VITALS: BP 135/96; PULSE 110; RESP 17; TEMP 97.6; O2SAT 96
[2024-02-01 20:00] VITALS: PULSE 89
[2024-02-01 21:00] VITALS: BP 144/87; PULSE 83; RESP 18; TEMP 97.9; O2SAT 95
[2024-02-02 01:00] VITALS: BP 131/79; PULSE 79; RESP 18; TEMP 98; O2SAT 98
[2024-02-02 05:00] VITALS: BP 126/81; PULSE 68; RESP 18; TEMP 98.4; O2SAT 96
[2024-02-02 08:00] VITALS: PULSE 73
[2024-02-02] MEDS ORDERED: LISI20TA56 PO (08:23)
[2024-02-02] MEDS ORDERED: PRED20TA2 PO (08:23)
[2024-02-02] MEDS ORDERED: METH4PAK PO (08:23)
[2024-02-02 09:00] VITALS: BP 110/78; PULSE 71; RESP 20; TEMP 98.8; O2SAT 94
[2024-02-02] MEDS ORDERED: FLUC150T38 PO (13:36)
[2024-02-02 17:19] VITALS: BP 129/73; PULSE 75; RESP 20; TEMP 97.5; O2SAT 92
[2024-02-02 20:37] VITALS: BP 110/78; TEMP 36.4
== END 2024-02-02 21:07 | disposition home or self-care (01) | DRG 48 ==
LOC: ER 09:12 → TELE 11:55 → TELE-CENTR 17:13
PROVIDERS: ADMIT Nurse Practitioner; ATTEND Nurse Practitioner
DX: G51.0 Bell's palsy (principal); E11.65 Type 2 diabetes mellitus with hyperglycemia; E66.9 Obesity, unspecified; E78.5 Hyperlipidemia, unspecified; I10 Essential (primary) hypertension; H57.11 Ocular pain, right eye; F17.200 Nicotine dependence, unspecified, uncomplicated; Z79.899 Other long term (current) drug therapy; Z83.3 Family history of diabetes mellitus; Z82.49 Family history of ischemic heart disease and other diseases of the circulatory system; Z79.4 Long term (current) use of insulin; Z68.41 Body mass index [BMI] 40.0-44.9, adult
CPT/HCPCS: 36415; 70450; 80048; 80053; 81001; 82962; 85025; 93005; 93306; 93886; 96372; 97163; G0378; J1815

== ENCOUNTER 2025-07-10 07:01 | Day surgery (SDC) | payer MEDICAID ==
[~2025-07-10] VITALS: Ht 170.2 cm; Wt 111.6 kg
[2025-07-10] VITALS (8 sets, daily range): BP systolic 125–144; BP diastolic 72–89; PULSE 71–82; RESP 12–20; TEMP 98.3; O2SAT 92–93
[~2025-07-10 07:01] MED LIST changes: +AMLO1TAB22 PO; -ATOR40TA52 PO; -BACDST PO; -CEPH500C PO; +CHOL20007 PO; -CYCL-837 PO; +EMPA1TAB PO; +EZET10TA22 PO; -HYDR-4902 PO; -IBUP-1456 PO; +LISI20TA60 PO; +METF-370 PO; -METF-371 PO; +ROSU20TA14 PO
[2025-07-10] MEDS ORDERED: SODIUM CHL 0.9% 0 ML ONE (08:07)
[2025-07-10] MEDS ORDERED: MIDAZOLAM HCL 2MG/2ML 2ml VIAL (1mg/ml) ONE (08:07)
[2025-07-10] MEDS ORDERED: fentaNYL CITRATE 100 MCG/2 ML VL ONE (08:07)
[2025-07-10] MEDS ORDERED: VERAPAMIL 2.5MG/ML INJ 2ML VIAL IV ONE (08:07)
[2025-07-10] MEDS ORDERED: ANGIOMAX 250 MG VIAL IV ONE (08:07)
[2025-07-10] MEDS ORDERED: LIDOCAINE 2%HCL (LOCAL ANESTH.) INJ 20ML MDV ONE (08:08)
[2025-07-10] MEDS ORDERED: HEPARIN SODIUM (PORCINE) 5000 UNITS/ML 1ML VIAL ONE (08:08)
[2025-07-10] MEDS ORDERED: NITROGLYCERIN 50MG/250ML 250 ML IV ONE (08:15)
[2025-07-10] MEDS ORDERED: IODIXANOL 320MG/ML 100ML BTL IV ONE (08:27)
--- NOTE | 2025-07-10 08:35 | DVHOP2 ---
Operative Report Operative Report CARDIAC LEARN TO SWIM INSTRUCTOR PROCEDURE REPORT [place], [place] Date of Service: 07/10/25 Bladder Tier: Juaquin Pulido MD PROCEDURES PERFORMED: Coronary angiogram, left heart catheterization, conscious sedation administration and supervision, less than 15 minutes; fluoroscopy use and interpretation. PREOPERATIVE DIAGNOSES: Abnormal stress test with CCS class 3 angina, mild LV dysfunction POSTOP DIAGNOSIS: microvascular disease DESCRIPTION OF PROCEDURE: The patient or appropriate family signed informed consent understanding the risks, benefits and alternatives of the procedure, they wished to proceed. The patient was brought to the cardiac hatchery laborer in n.p.o. state. The patient was prepped in a sterile fashion. Sedation was used per cardiac cath protocol. I administered 2 mL of 2% lidocaine to the right wrist. With an antegrade front wall puncture. I cannulated the right radial artery and placed a 6-Persian Glidesheath slender. Next, an intra-arterial spasmolytic was administered. Next, a - 6French Lathrop catheter were used for coronary angiogram and LVEDP measurement and pressure pullback. At the completion of procedure, all guides and wires were removed, and there were no immediate complications. 5000 U of IV heparin given FINDINGS: RCA: very large dominant vessel off the right sinus of Valsalva, there is no severe flow limiting stenosis. very sluggish flow suggestive of microvascular disease LEFT MAIN: Moderate size left main, it bifurcates into LAD and circumflex. no stenosis CIRCUMFLEX: Moderate caliber vessel coming off the left main with no flow limiting stenosis. LAD: LAD is a moderate caliber vessel coming of the left main. no severe stenosis. very sluggish flow suggestive of microvasculr disease LVEDP of 3 mmhg CONCLUSIONS: 1. NO severe cad 2. microvascular disease PLAN: Aggressive risk factor modification and medical management for the patient. CHF management weight loss JUAQUIN PULIDO MD Jul 10, 2025 08:35
== END 2025-07-10 10:45 | disposition home or self-care (01) ==
LOC: CATH 07:01
PROVIDERS: ATTEND Internal Medicine
DX: R94.39 Abnormal result of other cardiovascular function study (principal); I25.118 Atherosclerotic heart disease of native coronary artery with other forms of angina pectoris; F32.A Depression, unspecified; Z79.899 Other long term (current) drug therapy; Z98.890 Other specified postprocedural states; Z87.891 Personal history of nicotine dependence; Z83.3 Family history of diabetes mellitus
CPT/HCPCS: 93458; C1769; C1894; J1644; J2250; J3010; J7030; Q9967; 99152